=== PATIENT | female | born 1960 | race Caucasian/White ===

== ENCOUNTER → 2019-03-06 10:43 | Outpatient (POV) | payer MEDICAID, SELFPAY ==
[2019-03-06 10:56] VITALS: BP 189/87; PULSE 112; RESP 18; O2SAT 98
--- NOTE | 2019-03-06 11:56 | HMH.PMCON ---
Assessment and Plan (1) Degenerative joint disease (DJD) of lumbar spine Current visit: Yes Status: Chronic Qualifiers: Spinal osteoarthritis complication: with radiculopathy Qualified Code(s): M47.26 - Other spondylosis with radiculopathy, lumbar region Category: Medical Code(s): M47.816 - Spondylosis without myelopathy or radiculopathy, lumbar region - Assessment and plan all Dx Assessment and Plan for all problems:: Patient is uninterested in any type of any interventional options we can offer her at this time. She is requesting information of other offices that can prescribe her oral medications. The patient can call us if she wants to pursue any interventional options at a later time. Dr. Dumont has reviewed this note and agrees with this plan of care. This note was dictated using voice recognition software and may contain errors or omissions HPI - Data of Consult Patient: new to practice Consult date: 03/06/19 Requesting Physician: Paula Dukes APRN Primary Care Provider: Referral Provider, MD - Consult Narrative Reason for consult: Back pain, bilateral arm pain, bilateral leg pain History of present illness: Ms. Sweeney is a 58 year old female who presents today consultation per her primary care physician Lashay Marquis. The patient states that she was in a pain management clinic with a physician in [facility], who was recently incarcerated. As a result, she has not been able to get her pain pills. Patient states that she takes Neurontin 800 mg p.o. 3 times daily and [place] 10 mg p.o. 4 times daily. She says that she has been taking these for years. Patient rates her pain a 9 out of 10 today, starting at cervical spine to lumbar spine, radiating to bilateral lower extremities bilateral upper extremities and head. Patient says that NSAIDs are not helpful. She also says that she has had facet joint injections, as well as epidural injections with no relief. Patient states they are a waste of time . The does say that the only relief she gets is with pain pills and cannot function without them. CC: Paula Dukes APRN [facility] History Medical History: Reports:: Hypertension Denies:: Cancer, Diabetes Mellitus Type 1, Diabetes Mellitus Type 2, Internal Pacemaker, MRSA *Have you ever received a pneumonia vaccine?: No *Have you received a flu vaccine this season?: No Other Medical History: Reports: Arthritis Other Surgeries: No: Pacemaker Amputation: No - *Social History Smoking Status: Current every day smoker Tobacco Type: cigarettes # Packs/Day (cigarettes): 1 Alcohol Intake: never *Occupational Status:: other Housing: house Household Members: spouse *Travel in the last 8 weeks: None - Psychiatric History Expresses thoughts of harming self/others: None Suicide Plan Description: No Plan Family Hx:: Unable to obtain Review of Systems - Review of Systems ROS General: no recent weight change, no fever, no sleep disturbances Respiratory: no cough, no shortness of air, no recurring pulmonary infections Cardiovascular/Peripheral Vascular: No chest pain, No palpitations, no edema, no shortness of breath. Gastrointestinal: no incontinence, normal bowel movements reported Genitourinary: no incontinence Musculoskeletal: Back pain, bilateral leg pain, bilateral arm pain, pain Psychiatric: normal mood/ affect, [denies depression], [denies anxiety] Neurological: [denies weakness in extremities], [denies balance issues] Objective Vital signs: Pulse Resp BP Pulse Ox 112 H 18 189/87 H 98 03/06/19 10:56 03/06/19 10:56 03/06/19 10:56 03/06/19 10:56 Narrative: Physical Exam General: Alert and oriented x3, no acute distress, pleasant and cooperative, [on room air] Lungs: Resps E/U, Symmetrical chest expansion, Eyes: PERRL Musculoskeletal: Flexion and extension of lumbar spine somewhat guarded secondary to pain, deep tendon reflexes normal, strength
--- NOTE | 2019-03-06 12:02 | P.CONS_ITS ---
Assessment and Plan (1) Degenerative joint disease (DJD) of lumbar spine Current visit: Yes Status: Chronic Qualifiers: Spinal osteoarthritis complication: with radiculopathy Qualified Code(s): M47.26 - Other spondylosis with radiculopathy, lumbar region Category: Medical Code(s): M47.816 - Spondylosis without myelopathy or radiculopathy, lumbar region - Assessment and plan all Dx Assessment and Plan for all problems:: Patient is uninterested in any type of any interventional options we can offer her at this time. She is requesting information of other offices that can prescribe her oral medications. The patient can call us if she wants to pursue any interventional options at a later time. Dr. Dumont has reviewed this note and agrees with this plan of care. This note was dictated using voice recognition software and may contain errors or omissions HPI - Data of Consult Patient: new to practice Consult date: 03/06/19 Requesting Physician: Paula Dukes APRN Primary Care Provider: Referral Provider, MD - Consult Narrative Reason for consult: Back pain, bilateral arm pain, bilateral leg pain History of present illness: Ms. Sweeney is a 58 year old female who presents today consultation per her primary care physician Lashay Marquis. The patient states that she was in a pain management clinic with a physician in [facility], who was recently incarcerated. As a result, she has not been able to get her pain pills. Patient states that she takes Neurontin 800 mg p.o. 3 times daily and [place] 10 mg p.o. 4 times daily. She says that she has been taking these for years. Patient rates her pain a 9 out of 10 today, starting at cervical spine to lumbar spine, radiating to bilateral lower extremities bilateral upper extremities and head. Patient says that NSAIDs are not helpful. She also says that she has had facet joint injections, as well as epidural injections with no relief. Patient states they are a waste of time . The does say that the only relief she gets is with pain pills and cannot function without them. CC: Paula Dukes APRN [facility] History Medical History: Reports:: Hypertension Denies:: Cancer, Diabetes Mellitus Type 1, Diabetes Mellitus Type 2, Internal Pacemaker, MRSA *Have you ever received a pneumonia vaccine?: No *Have you received a flu vaccine this season?: No Other Medical History: Reports: Arthritis Other Surgeries: No: Pacemaker Amputation: No - *Social History Smoking Status: Current every day smoker Tobacco Type: cigarettes # Packs/Day (cigarettes): 1 Alcohol Intake: never *Occupational Status:: other Housing: house Household Members: spouse *Travel in the last 8 weeks: None - Psychiatric History Expresses thoughts of harming self/others: None Suicide Plan Description: No Plan Family Hx:: Unable to obtain Review of Systems - Review of Systems ROS General: no recent weight change, no fever, no sleep disturbances Respiratory: no cough, no shortness of air, no recurring pulmonary infections Cardiovascular/Peripheral Vascular: No chest pain, No palpitations, no edema, no shortness of breath. Gastrointestinal: no incontinence, normal bowel movements reported Genitourinary: no incontinence Musculoskeletal: Back pain, bilateral leg pain, bilateral arm pain, pain Psychiatric: normal mood/ affect, [denies depression], [denies anxiety] Neurological: [denies weakness in extremities], [denies balance issues] Objective Vital signs:
== END ==
PROVIDERS: Visit Provider Clinical Nurse Specialist Family Health
DX: M47.816 Spondylosis without myelopathy or radiculopathy, lumbar region (principal)
CPT/HCPCS: 99202